=== PATIENT | male | born 1930 | race Caucasian/White ===

== ENCOUNTER 2021-01-17 09:46 | Observation (INO) | payer MEDICARE, BC ==
[2021-01-16 11:14] LABS: BASOPHILS % (AUTO) 0.5 % (0-1); EOSINOPHILS # (AUTO) 0.2 X10'3 (0-0.9); HEMATOCRIT 44.8 % (42.0-52.0); LYMPHOCYTES # (AUTO) 2.1 X10'3 (1.1-4.8); MEAN CORPUSCULAR HEMOGLOBIN 32.7 PG (27.0-31.0); MEAN CORPUSCULAR HGB CONC 33.4 g/dL (33.0-36.5); MEAN CORPUSCULAR VOLUME 97.8 FL (78-98); MEAN PLATELET VOLUME 8.2 FL (7.4-10.4); MONOCYTES # (AUTO) 0.9 X10'3 (0-0.9); MONOCYTES % (AUTO) 10.6 % (2-12); NEUTROPHILS # (AUTO) 5.5 X10'3 (1.8-7.7); NEUTROPHILS % (AUTO) 62.9 % (42-75); PLATELET COUNT 248 X10'3 (140-440); RED BLOOD COUNT 4.58 X10'6 (4.70-6.10); RED CELL DISTRIBUTION WIDTH 15.3 % (11.5-14.5); WHITE BLOOD COUNT 8.8 X10'3 (4.5-11.0)
[2021-01-16 11:18] LABS: ALBUMIN 3.2 G/DL (3.4-5.0); ANION GAP 9 (8-16); BLOOD UREA NITROGEN 37 MG/DL (7-18); BUN/CREATININE RATIO 28.2 (5.4-32.0); CALCIUM 9.6 MG/DL (8.5-10.1); CHLORIDE 104 MMOL/L (99-107); CREATININE 1.31 MG/DL (0.60-1.10); GLUCOSE 87 MG/DL (70-104); POTASSIUM 4.2 MMOL/L (3.5-5.1); SODIUM 141 MMOL/L (135-145); eGFR 52 ML/MIN
[2021-01-16 11:21] LABS: PARTIAL THROMBOPLASTIN TIME 26 SECONDS (22-32)
[~2021-01-17] VITALS: Ht 182.9 cm; Wt 61.3 kg
[2021-01-17] VITALS (12 sets, daily range): BP systolic 130–192; BP diastolic 45–91
[2021-01-17] MEDS ORDERED: diphenhydrAMINE 25mg capsule PO PRN (10:10)
[2021-01-17] MEDS ORDERED: LIDOcaine/PRILOcaine 5gm cream TP ONE (10:10)
[2021-01-17] MEDS ORDERED: LORazepam 0.5 MG tablet PO PRN (10:10)
[2021-01-17] MEDS ORDERED: BISO1TAB99 PO (10:21)
[2021-01-17] MEDS ORDERED: ALLO100T PO (10:21)
[2021-01-17] MEDS ORDERED: ATOR20TA66 PO (10:21)
[2021-01-17] MEDS ORDERED: ASPI-1053 PO (10:31)
[2021-01-17] MEDS ORDERED: VITAMIN B12 PO (10:31)
[2021-01-17] MEDS ORDERED: VITAMIN D3 PO (10:31)
[2021-01-17] MEDS ORDERED: VIT1CAPS42 PO (10:31)
[2021-01-17] MEDS ORDERED: OMEG-15 PO (10:31)
[2021-01-17] MEDS ORDERED: CALC-1215 PO (10:31)
[2021-01-17] MEDS ORDERED: FAMO10TA41 PO (10:31)
[2021-01-17] MEDS: normal saline 1,000 ML IV SCH (11:08)
[2021-01-17] MEDS ORDERED: sodium bicarbonate (8.4%) inj. 150 MEQ in dextrose 5%-water 1,000 ML IV ONE (12:10)
[2021-01-17] MEDS ORDERED: acetylcysteine 200 MG/ml 4ml vial PO PRN (12:15)
[2021-01-17] MEDS ORDERED: pneumococcal 23-VAL P-sac vacc 25 mcg/0.5ml vial IMVAC ONE (12:15)
[2021-01-17] MEDS ORDERED: verapamil 2.5 mg/ml inj IV ONE (15:03)
[2021-01-17] MEDS ORDERED: midazolam 1 mg/ML 2ml injection ONE (15:03)
[2021-01-17] MEDS ORDERED: nitroGLYCERIN-Tridil 50MG/D5W 250 ML IV ONE (15:04)
[2021-01-17] MEDS ORDERED: LIDOcaine 1% (10mg/ml)w/preservative injection 20ml MDV ONE (15:04)
[2021-01-17] MEDS ORDERED: iohexol 350MG/ML 100ml bottle IV ONE (15:04)
[2021-01-17] MEDS ORDERED: heparin 1,000unit/ml 10ml vial 10 ML ONE (15:04)
[2021-01-17] MEDS ORDERED: iohexol 350 MG/ML 50ML vial IV ONE ×2 (15:04→15:55)
[2021-01-17] MEDS ORDERED: fentaNYL/PF 50MCG/1 ML 2ML syringe ONE (15:04)
[2021-01-17 15:53] LABS: ISTAT HGB ART 13.3 g/dl (14.0-18.0); ISTAT Hct ART 39 %PCV (42-52); ISTAT O2 SATURATION ARTERIAL 94 % (95-98); ISTAT SOURCE ART
[2021-01-17] MEDS ORDERED: diltiazem 5mg/ml 5ml inj. IV ONE (18:00)
[2021-01-17] MEDS ORDERED: hydrALAZINE 20mg/ml inj. IV ONE (18:20)
[2021-01-17] MEDS ORDERED: nitroGLYCERIN 0.4mg SUBLingual tab SL ONE (18:20)
[2021-01-17] MEDS ORDERED: lisinopril 5mg tablet PO ONE (20:05)
--- NOTE | 2021-01-17 20:50 | NUR ---
Problems reprioritized. Patient report given, questions answered & plan of care reviewed with Domingo WALKER. Will be bringing patient to 308.
--- NOTE | 2021-01-17 21:00 | NUR ---
VSS, Patient in stable condition,vascular band on, instructed receiving nurse about technique of taking vascular band off and pressure dressing. Belongings taken with patient to room 308, patient in no distress at this time, Domingo WALKER and Nick WALKER at bedside.
--- NOTE | 2021-01-17 21:24 | NUR ---
Patient's heart rate 43-60, BP trending up high of 190/100. MD notified and received orders for hydralazine. Also noted possible ST elevation on our mobile EKG, notified MD and did 12 lead. MD visualized all EKGs and states okay, no new orders received for rhythm change. Received orders to stop beta chrissy/ HCTZ patient is taking at home. Received order for lisinopril 10 mg po daily, give additional dose if SBP > 160. Educated patient's on new medication and to monitor patient's BP TID. Received new order for [facility] transfer.
[2021-01-18 01:41] VITALS: BP 143/45
--- NOTE | 2021-01-18 02:02 | NUR ---
Patient in room MED 308. I have received report from AARON Lane and had the opportunity to ask questions and assume patient care.
[2021-01-18] MEDS: normal saline 1,000 ML IV SCH (02:32)
[2021-01-18 05:51] LABS: ALANINE AMINOTRANSFERASE 31 U/L (12-78); ALBUMIN 2.7 G/DL (3.4-5.0); ALBUMIN/GLOBULIN RATIO 0.6 (1.1-1.5); ALKALINE PHOSPHATASE 108 IU/L (46-116); ANION GAP 6 (8-16); ASPARTATE AMINO TRANSFERASE 32 U/L (10-37); BLOOD UREA NITROGEN 21 MG/DL (7-18); BUN/CREATININE RATIO 22.3 (5.4-32.0); CHLORIDE 104 MMOL/L (99-107); CREATININE 0.94 MG/DL (0.60-1.10); GLUCOSE 88 MG/DL (70-104); POTASSIUM 3.7 MMOL/L (3.5-5.1); SODIUM 140 MMOL/L (135-145); eGFR 76 ML/MIN
--- NOTE | 2021-01-18 06:35 | NUR ---
Problems reprioritized. Patient report given, questions answered & plan of care reviewed with AARON Eastman.
[2021-01-18] MEDS ORDERED: aspirin 81mg tab.chew PO SCH (08:00)
[2021-01-18] MEDS ORDERED: calcium carbonate/vitamin D3 tablet PO SCH (08:00)
[2021-01-18] MEDS ORDERED: FISH OIL PO SCH (08:00)
[2021-01-18] MEDS ORDERED: OMEGA PO SCH (08:00)
[2021-01-18] MEDS ORDERED: atorvastatin 20mg tablet PO SCH (08:00)
[2021-01-18] MEDS ORDERED: cyanocobalamin 500mcg tablet PO SCH (08:00)
[2021-01-18] MEDS ORDERED: vitamin D (cholecalciferol) 1,000 unit tablet PO SCH (08:00)
[2021-01-18] MEDS ORDERED: famotidine 10mg tablet PO SCH (08:00)
[2021-01-18] MEDS ORDERED: DHA PO SCH (08:00)
[2021-01-18] MEDS ORDERED: beta-carotene(A) w/C & E + minerals tab PO SCH (08:00)
[2021-01-18] MEDS ORDERED: EPA PO SCH (08:00)
[2021-01-18] MEDS ORDERED: allopurinol 100mg tablet PO SCH (08:00)
[2021-01-18] MEDS ORDERED: pneumococcal 23-VAL P-sac vacc 25 mcg/0.5ml vial IMVAC ONE (10:00)
[2021-01-18] MEDS ORDERED: LISI20TA28 PO (10:04)
== END 2021-01-18 11:55 | disposition home or self-care (01) ==
LOC: SSTAY O 09:46 → MED 3N 20:47
PROVIDERS: ADMIT Internal Medicine Cardiovascular Disease; ATTEND Internal Medicine Cardiovascular Disease
DX: I35.0 Nonrheumatic aortic (valve) stenosis (principal); I44.2 Atrioventricular block, complete; I27.20 Pulmonary hypertension, unspecified; I25.10 Atherosclerotic heart disease of native coronary artery without angina pectoris; I10 Essential (primary) hypertension; E78.5 Hyperlipidemia, unspecified; I73.9 Peripheral vascular disease, unspecified; M19.90 Unspecified osteoarthritis, unspecified site; M10.9 Gout, unspecified; Z79.82 Long term (current) use of aspirin; Z79.899 Other long term (current) drug therapy
CPT/HCPCS: 36415; 76937; 80048; 80053; 82803; 85014; 85025; 85610; 85730; 93005; 93460; 93567; 96361; 96365; 96366; 96375; C1769; C1894; G0378; J0360; J1644; J2001; J2250; J3010; J7030; Q0163; Q9967; 99152; 99153; A4620; A5120; C1751; J3490